=== PATIENT | male | born 2000 | race Caucasian/White ===

== ENCOUNTER 2020-05-11 21:09 | Emergency (ER) | payer MEDICAID ==
[~2020-05-11] VITALS: Ht 177.8 cm; Wt 60.0 kg
[2020-05-11] MEDS ORDERED: KETOROLAC 30MG/ML VIAL IM ONE (22:15)
[2020-05-11 23:44] VITALS: BP 124/70
== END 2020-05-11 23:53 | disposition home or self-care (01) ==
LOC: ER 21:09
DX: S50.02XA Contusion of left elbow, initial encounter (principal); S80.01XA Contusion of right knee, initial encounter; S70.01XA Contusion of right hip, initial encounter; V49.49XA Driver injured in collision with other motor vehicles in traffic accident, initial encounter; Y93.89 Activity, other specified; Y92.89 Other specified places as the place of occurrence of the external cause; Y99.8 Other external cause status; J45.909 Unspecified asthma, uncomplicated
CPT/HCPCS: 29105; 73080; 73502; 73562; 96372; 99284; J1885